=== PATIENT | female | born 1990 | race Two or more races ===

== ENCOUNTER 2024-01-18 19:22 | Emergency (ER) | payer MEDICAID, OTHER ==
[~2024-01-18] VITALS: Ht 167.6 cm; Wt 68.0 kg
[2024-01-18 21:34] VITALS: BP 132/66; TEMP 98.2; O2SAT 100
== END 2024-01-19 03:50 | disposition left against medical advice (07) ==
LOC: ER 19:26
DX: R05.3 Chronic cough (principal); Z20.822 Contact with and (suspected) exposure to COVID-19
CPT/HCPCS: 86403-TC; 87070-TC